=== PATIENT | female | born 1985 | race Caucasian/White ===

== ENCOUNTER 2025-08-26 16:36 | Emergency (ER) | payer BC, SELFPAY ==
[2025-08-26 16:38] VITALS: BP 148/88
[2025-08-26 16:56] LABS: Hematocrit 44.6 % (37.0-47.0); Hemoglobin 14.7 g/dL (12.0-16.0); Mean Corp Hgb Conc. 33.0 g/dL (33.0-37.0); Mean Corpuscular Volume 98.2 fL (81.0-99.0); Nucleated Red Blood Cells % 0 %; Platelet Count 280 10^3/uL (130-400); Red Cell Dist. Width 11.8 % (11.5-14.5)
[2025-08-26 17:08] LABS: HCG, Serum Qualitative Screen Negative
[2025-08-26 17:19] LABS: ALT (SGPT) 18 U/L (0-35); AST (SGOT) 21 U/L (14-36); Albumin 4.8 g/dl (3.5-5.0); Alkaline Phosphatase 72 U/L (38-126); Blood Urea Nitrogen 10 mg/dl (7-17); Calcium 9.5 mg/dl (8.4-10.2); Carbon Dioxide 26 mmol/L (22-30); Chloride 103 mmol/L (98-107); Glucose 96 mg/dl (70-99); Potassium 4.1 mmol/L (3.5-5.1); Sodium 137 mmol/L (135-145); Total Protein 7.7 g/dl (6.3-8.2); eGFR > 60.00
[2025-08-26 17:21] LABS: Troponin I < 0.012 ng/ml
[2025-08-26 18:58] VITALS: BP 128/78
== END 2025-08-26 19:13 ==
LOC: EMR 16:36
PROVIDERS: Emergency Medicine
DX: R07.89 Other chest pain (principal)
CPT/HCPCS: 80053; 84484; 84703; 85025; 93005